=== PATIENT | male | born 1985 | race Caucasian/White ===

== ENCOUNTER 2019-05-30 16:13 | Emergency (ER) | payer OTHER ==
[~2019-05-30] VITALS: Ht 172.7 cm; Wt 59.0 kg
[2019-05-30 16:24] VITALS: BP_SYST 147
[2019-05-30 19:10] VITALS: BP_SYST 144
== END 2019-05-30 19:09 | disposition home or self-care (01) ==
LOC: SED 16:13
DX: R60.0 Localized edema (principal); N18.6 End stage renal disease; Z99.2 Dependence on renal dialysis
CPT/HCPCS: 93971; 99284